=== PATIENT | male | born 1925 | race Caucasian/White ===

== ENCOUNTER 2017-04-18 19:11 | Inpatient (IN) | payer OTHER ==
[~2017-04-18] VITALS: Ht 188 cm; Wt 76.7 kg
[2017-04-18 20:25] LABS: HEMATOCRIT 35.8 % (38.0-50.0); MCH 31.3 PG (29.0-34.0); MCHC 33.8 G/DL (30.0-36.0); MCV 92.7 FL (86-99); MEAN PLAT.VOLUME 10.7 uM^3 (9.0-12.4); PLATELET COUNT 198 K/uL (156-360); RBC DIS.WIDTH-CV 13.2 % (11.8-14.6); RBC DIS.WIDTH-SD 45.1 % (39-53); RED BLOOD COUNT 3.86 M/uL (4.00-5.50); WHITE BLOOD COUNT 12.9 K/uL (4.1-10.2)
[2017-04-18 20:27] LABS: CHLORIDE 102 mEq/L (99-109); POTASSIUM 4.2 mEq/L (3.7-5.4); SODIUM 138 mEq/L (136-147)
[2017-04-18 20:28] LABS: GLUCOSE 117 mg/dL (70-99)
[2017-04-18 20:30] LABS: ANION GAP 11 MEQ/L (2-14)
[2017-04-18 20:32] LABS: GFR ESTIMATE (CALCULATED) > 59 mL/min/
[2017-04-18 20:33] LABS: UREA NITROGEN (BUN) 26 mg/dL (9-23)
[2017-04-18 20:39] LABS: TROP-I INTERPRETATION NEGATIVE; TROPONIN-I 0.02 ng/mL (0.0-0.30)
[2017-04-18] MEDS ORDERED: LOSARTAN POTASS50 MG PO (21:15)
[2017-04-18] MEDS ORDERED: ASPIR 8181 M1 PO (21:16)
[2017-04-18] MEDS ORDERED: LASIX20 MG PO (21:16)
[2017-04-18] MEDS ORDERED: METOPROLOL TART25 MG PO (21:16)
[2017-04-18] MEDS ORDERED: POTASSIUM CHLO10 ME4 PO (21:17)
[2017-04-18 21:54] LABS: ADD MIUA? YES; BILIRUBIN NEGATIVE; BLOOD NEGATIVE; COLOR AMBER ((YELLOW)); GLUCOSE (STRIP) NEGATIVE; KETONES NEGATIVE; LEUKOCYTES NEGATIVE; NITRITE NEGATIVE; PROTEIN (STRIP) 30; SPECIFIC GRAVITY 1.024 (1.000-1.030)
[2017-04-18 22:51] LABS: BACTERIA NONE SEEN /HPF; EPITHELIAL CELLS NONE SEEN /HPF; MUCUS TRACE /LPF; UCUL ADDED? NO; WHITE BLOOD CELLS 0-5 /HPF (0-5)
[2017-04-18] MEDS ORDERED: POTASSIUM-9999 MG PO ×2 (23:02→23:03)
[2017-04-19] VITALS (7 sets, daily range): BP systolic 123–179; BP diastolic 65–93
[2017-04-19 13:48] LABS: INTER. NORMALIZED RATIO 1.5; PROTHROMBIN TIME 16.9 SEC (10.2-12.9)
[2017-04-20] VITALS (7 sets, daily range): BP systolic 110–154; BP diastolic 57–74
[2017-04-20 05:27] LABS: HEMATOCRIT 32.4 % (38.0-50.0); MCH 31.7 PG (29.0-34.0); MCHC 33.6 G/DL (30.0-36.0); MCV 94.2 FL (86-99); MEAN PLAT.VOLUME 11.2 uM^3 (9.0-12.4); PLATELET COUNT 194 K/uL (156-360); RBC DIS.WIDTH-CV 13.4 % (11.8-14.6); RBC DIS.WIDTH-SD 46.2 % (39-53); RED BLOOD COUNT 3.44 M/uL (4.00-5.50); WHITE BLOOD COUNT 9.1 K/uL (4.1-10.2)
[2017-04-20 05:57] LABS: ANION GAP 9 MEQ/L (2-14); CHLORIDE 103 MEQ/L (99-109); GFR ESTIMATE (CALCULATED) > 59 mL/min/; GLUCOSE 99 mg/dL (70-99); POTASSIUM 4.3 MEQ/L (3.7-5.4); SAMPLE HEMOLYSIS CHECK 0; SAMPLE ICTERIC CHECK 0; SAMPLE LIPEMIA CHECK 0; SODIUM 139 MEQ/L (136-147); UREA NITROGEN (BUN) 30 mg/dL (9-23)
[2017-04-20 13:16] LABS: TYPE OF FLUID PLEURAL
[2017-04-20 14:04] LABS: BODY FLUID RBC'S 4000 /MM^3 (0-100); BODY FLUID WBC'S 1649 /MM^3 (0-500)
[2017-04-20 14:32] LABS: BODY FLUID PROTEIN < 3.0 G/DL
[2017-04-20 14:54] LABS: BODY FLUID EOSINOPHILS 0 % (0-25); MONONUCLEAR WBC'S 12 %; POLYNUCLEAR WBC'S 88 % (0-25)
[2017-04-21 03:56] VITALS: BP 143/76
[2017-04-21 05:21] LABS: HEMATOCRIT 30.7 % (38.0-50.0); MCH 31.7 PG (29.0-34.0); MCHC 33.6 G/DL (30.0-36.0); MCV 94.5 FL (86-99); MEAN PLAT.VOLUME 10.9 uM^3 (9.0-12.4); PLATELET COUNT 187 K/uL (156-360); RBC DIS.WIDTH-CV 13.2 % (11.8-14.6); RBC DIS.WIDTH-SD 45.8 % (39-53); RED BLOOD COUNT 3.25 M/uL (4.00-5.50); WHITE BLOOD COUNT 6.9 K/uL (4.1-10.2)
[2017-04-21 05:47] LABS: ANION GAP 5 MEQ/L (2-14); CHLORIDE 103 MEQ/L (99-109); GFR ESTIMATE (CALCULATED) > 59 mL/min/; GLUCOSE 121 mg/dL (70-99); POTASSIUM 4.1 MEQ/L (3.7-5.4); SAMPLE HEMOLYSIS CHECK 0; SAMPLE ICTERIC CHECK 0; SAMPLE LIPEMIA CHECK 0; SODIUM 138 MEQ/L (136-147); UREA NITROGEN (BUN) 30 mg/dL (9-23)
[2017-04-21 08:00] VITALS: BP 165/89
[2017-04-21 11:52] VITALS: BP 149/89
[2017-04-21 19:49] VITALS: BP 136/74
[2017-04-22 00:03] VITALS: BP 154/74
[2017-04-22 03:07] VITALS: BP 150/70
[2017-04-22 05:21] LABS: HEMATOCRIT 32.7 % (38.0-50.0); MCH 31.8 PG (29.0-34.0); MCHC 33.6 G/DL (30.0-36.0); MCV 94.5 FL (86-99); MEAN PLAT.VOLUME 10.7 uM^3 (9.0-12.4); PLATELET COUNT 206 K/uL (156-360); RBC DIS.WIDTH-CV 13.2 % (11.8-14.6); RBC DIS.WIDTH-SD 45.5 % (39-53); RED BLOOD COUNT 3.46 M/uL (4.00-5.50); WHITE BLOOD COUNT 6.3 K/uL (4.1-10.2)
[2017-04-22 05:45] LABS: ANION GAP 7 MEQ/L (2-14); CHLORIDE 102 MEQ/L (99-109); GFR ESTIMATE (CALCULATED) > 59 mL/min/; GLUCOSE 118 mg/dL (70-99); SAMPLE HEMOLYSIS CHECK 0; SAMPLE ICTERIC CHECK 0; SAMPLE LIPEMIA CHECK 0; SODIUM 138 MEQ/L (136-147); UREA NITROGEN (BUN) 23 mg/dL (9-23)
[2017-04-22 07:25] VITALS: BP 146/82
[2017-04-22 11:10] VITALS: BP 141/73
[2017-04-22 15:00] VITALS: BP 152/62
[2017-04-22 15:53] LABS: TYPE OF FLUID PLEURAL
[2017-04-22 16:33] LABS: BODY FLUID LDH 356 IU/L
[2017-04-22 17:12] LABS: BODY FLUID EOSINOPHILS 0 % (0-25); BODY FLUID RBC'S 3000 /MM^3 (0-100); BODY FLUID WBC'S 755 /MM^3 (0-500); COMMENT FEW MACROPHAGES SEEN; MONONUCLEAR WBC'S 13 %; POLYNUCLEAR WBC'S 87 % (0-25)
[2017-04-22 20:04] VITALS: BP 138/81
[2017-04-23 00:19] VITALS: BP 138/75
[2017-04-23 05:00] VITALS: BP 146/73
[2017-04-23 05:35] LABS: EOSINOPHIL COUNT 0.1 K/uL (0-0.3); HEMATOCRIT 34.2 % (38.0-50.0); IMMATURE GRANULOCYTE (%) 0.8 % (0.0-0.7); IMMATURE GRANULOCYTE COUNT 0.1 K/uL; INSTRUMENT ABS NEUTROPHIL CT 4.9 K/uL; LYMPHOCYTE COUNT 0.8 K/uL (1.0-2.8); MCHC 33.3 G/DL (30.0-36.0); MCV 92.9 FL (86-99); MEAN PLAT.VOLUME 10.5 uM^3 (9.0-12.4); MONOCYTE (%) 11.1 % (3-12); MONOCYTE COUNT 0.7 K/uL (0-0.8); NEUTROPHIL (%) 74.3 % (45-76); NEUTROPHIL COUNT 4.9 K/uL (1.8-6.4); PLATELET COUNT 227 K/uL (156-360); RBC DIS.WIDTH-CV 13.1 % (11.8-14.6); RBC DIS.WIDTH-SD 44.9 % (39-53); RED BLOOD COUNT 3.68 M/uL (4.00-5.50); WHITE BLOOD COUNT 6.6 K/uL (4.1-10.2)
[2017-04-23 05:55] LABS: ANION GAP 6 MEQ/L (2-14); CHLORIDE 103 MEQ/L (99-109); GFR ESTIMATE (CALCULATED) > 59 mL/min/; GLUCOSE 102 mg/dL (70-99); POTASSIUM 4.1 MEQ/L (3.7-5.4); SAMPLE HEMOLYSIS CHECK 0; SAMPLE ICTERIC CHECK 0; SAMPLE LIPEMIA CHECK 0; SODIUM 138 MEQ/L (136-147); UREA NITROGEN (BUN) 23 mg/dL (9-23)
[2017-04-23 07:47] VITALS: BP 158/77
[2017-04-23 07:55] LABS: INTERNAL CONTROL VALID? YES
[2017-04-23] MEDS ORDERED: FLORASTOR250 MG PO (11:52)
[2017-04-23] MEDS ORDERED: CEFDINIR300 MG PO (11:52)
== END 2017-04-23 13:43 | disposition home or self-care (01) | DRG 193 ==
LOC: EME 19:11 → EDOF 23:51 → 4EAST 23:51 → ENRESERV 23:52 → 4EAST 04-19 01:09 → ENPENDDIS 04-23 → 4EAST 04-23 13:43
PROVIDERS: Emergency Medicine; Hospitalist; Internal Medicine; Internal Medicine Pulmonary Disease; Radiology Diagnostic Radiology
PROC: 0W993ZX Drainage of Right Pleural Cavity, Percutaneous Approach, Diagnostic (ICD-10-PCS; principal; 2017-04-20)
PROC: 0W993ZX Drainage of Right Pleural Cavity, Percutaneous Approach, Diagnostic (ICD-10-PCS; 2017-04-22)
DX: J18.9 Pneumonia, unspecified organism (principal); J96.01 Acute respiratory failure with hypoxia; J90 Pleural effusion, not elsewhere classified; I11.0 Hypertensive heart disease with heart failure; I50.30 Unspecified diastolic (congestive) heart failure; I08.1 Rheumatic disorders of both mitral and tricuspid valves; I27.20 Pulmonary hypertension, unspecified; I48.2 Chronic atrial fibrillation; J98.11 Atelectasis; R00.0 Tachycardia, unspecified; Z66 Do not resuscitate; H91.90 Unspecified hearing loss, unspecified ear
CPT/HCPCS: 71010; 71020; 71250; 76942; 80048; 81003; 82945; 83605; 83615 91; 83880; 84157; 84484; 85025; 85027; 85610; 87040; 87070; 87075; 87086; 87205; 87449; 88108; 88305; 89051; 93005; 93306; 93970; 94010; 94640; 94640 76; 94760; 94799; 99202; 99281; 99285; C1769; J0456; J0696; J1644; J1940; J2543; J3475; J7050